=== PATIENT | male | born 1985 | race Caucasian/White ===

== ENCOUNTER → 2021-12-27 10:53 | Outpatient (BNVA) | payer SELFPAY | PROVIDERS: PCP Nurse Practitioner Family; Visit Provider Nurse Practitioner Family | DX: Z13.6 Encounter for screening for cardiovascular disorders (principal); R73.9 Hyperglycemia, unspecified | CPT/HCPCS: 80053; 80061; 81000; 83036; 84443; 85025 ==

== ENCOUNTER → 2021-12-29 14:08 | Outpatient (BNVA) | payer SELFPAY | PROVIDERS: PCP Nurse Practitioner Family; Visit Provider Nurse Practitioner Family | DX: E87.5 Hyperkalemia (principal) | CPT/HCPCS: 80053 ==

== ENCOUNTER → 2023-02-10 12:48 | Outpatient (BNVA) | payer OTHER, SELFPAY | PROVIDERS: PCP Nurse Practitioner Family; Visit Provider Registered Nurse Neonatal Intensive Care | DX: R50.9 Fever, unspecified (principal) | CPT/HCPCS: 87400 ==

== ENCOUNTER → 2023-03-13 08:06 | Outpatient (BNVA) | payer OTHER, SELFPAY | PROVIDERS: PCP Nurse Practitioner Family; Visit Provider Physician Assistant | DX: M75.41 Impingement syndrome of right shoulder; M19.011 Primary osteoarthritis, right shoulder | CPT/HCPCS: 73030 ==

== ENCOUNTER 2024-07-13 20:46 | Emergency (ER) | payer SELFPAY ==
[2024-07-13 20:52] VITALS: BP 152/102; PULSE 85; RESP 18; TEMP 36.8; O2SAT 100; BMI 22.6
--- NOTE | 2024-07-13 22:00 | USR_ITS ---
PROCEDURE INFORMATION: Exam: US Scrotum and US Duplex Artery and Vein, Scrotum, Complete Exam date and time: 07/13/2024 11:50 PM Age: 38 years old Clinical indication: Scrotum pain; Prior surgery; Surgery date: <1 month; Surgery type: Vasectomy May 2024; Additional info: Testicular pain TECHNIQUE: Imaging protocol: Real-time ultrasound of the scrotum. Real-time duplex ultrasound scan of the arterial and venous flow of the scrotum with B-mode, color Doppler flow and spectral waveform analysis. Complete exam. Duplex exam was performed to evaluate for torsion and other vascular conditions. COMPARISON: No relevant prior studies available. FINDINGS: Right: The right testicle measures 36 x 20 x 26 mm, estimated volume 9.6 cc. No visible intratesticular mass. Duplex Doppler evaluation, with color flow and spectral waveform analysis, demonstrates intratesticular arterial and venous blood flow. The right epididymis is normal in size and appearance. There is a small amount of right scrotal fluid. Suspect a small right varicocele. Left: The left testicle measures 35 x 19 x 27 mm, estimated volume 9.4 cc. No visible intratesticular mass. Duplex Doppler evaluation, with color flow and spectral waveform analysis, demonstrates intratesticular arterial and venous blood flow. 4 x 2 x 3 mm cyst or spermatocele in the left epididymis. The left epididymis is otherwise unremarkable in size and appearance. There is a small amount of left scrotal fluid. Suspect a small left varicocele. US/US scrotum [id number] IMPRESSION: 1. No evidence for torsion by Doppler ultrasound. 2. No findings to suggest epididymitis. 3. Small bilateral hydroceles. 4. Other details discussed above.
--- NOTE | 2024-07-13 22:24 | ED_ITS ---
HPI - Male Genitourinary General: Chief complaint: Urogenital-Male Stated complaint: Testicle Pain Time Seen by Provider: 07/13/24 22:00 Source: patient and family () Mode of arrival: ambulatory Limitations: no limitations History of Present Illness: 38-year-old male comes in with right zack ticular pain, going on 5 days getting worse. Now having trouble sitting or standing. Extremely tender on the right side. Right testicle is not high riding. Had a vasectomy on June 05, 2024. MD Complaint: testicle pain and testicle swelling Related Data Previous Rx's Medication Instructions Recorded gabapentin 300 mg capsule 300 mg PO BID #60 caps 11/02/23 prednisone 20 mg tablet 20 mg PO DAILY #18 tabs 11/02/23 doxycycline hyclate 100 mg tablet 100 mg PO BID 10 days #20 tabs 07/14/24 ketorolac 10 mg tablet 10 mg PO Q6H PRN pain 5 days #20 07/14/24 tabs Allergies Allergy/AdvReac Type Severity Reaction Status Date / Time No Known Allergies Allergy Verified 07/13/24 20:57 Review of Systems General: Reports: 10 or more systems reviewed and unremarkable except in HPI and below PFSH ED PFSH: Social History Smoking and tobacco/nicotine status: current every day tobacco/nicotine user Physical Exam Const: COMMON NORMALS: no acute distress, average body habitus, patient oriented x3, healthy appearing, alert and well nourished GENERAL APPEARANCE: well kempt and well developed HENMT: COMMON NORMALS: normocephalic, atraumatic, external ears normal and moist oral mucous membranes HEAD & SCALP: normocephalic and atraumatic EXTERNAL EAR: Yes external ears normal Eye: COMMON NORMALS: Equal, round and reactive pupils present, EOMs intact bilaterally and conjunctivae normal CONJUNCTIVA: Yes conjunctivae normal PUPIL: Yes Equal, round and reactive pupils present Neck/C-Spine: COMMON NORMALS: full ROM, no lymphadenopathy and supple Chest: CHEST: Yes Symmetrical chest wall rise and No Surgical scars present (Chest) Resp: COMMON NORMALS: normal respiratory effort, No retractions, No use of accessory muscles and clear to auscultation bilaterally AUSCULTATION: clear to auscultation bilaterally Cardio: COMMON NORMALS: regular rate, regular rhythm, S1 normal heart sound present, S2 normal heart sound present, No gallops present (Cardio), No clicks present (Cardio), No murmurs present (Cardio) and No rub (Cardio) RATE: regular rate RHYTHM: regular rhythm HEART SOUNDS: S1 normal heart sound present, S2 normal heart sound present and no murmurs PERIPHERAL PULSES: other (Radial pulses 2+ and symmetric) GI: COMMON NORMALS: Soft to palpation, non-tender and no masses INSPECTION: No abdominal distension PALPATION: Yes Soft to palpation, No Guarding due to palpation present (GI) and No Rebound tenderness present : COMMON NORMALS: Yes no CVA tenderness, Yes no scrotal swelling and Yes No hernias present BLADDER/KIDNEY EXAM: Yes no CVA tenderness PENIS: normal penis and circumcised MEATUS: meatus normal TESTES: No testicular lie normal, Yes testicular tenderness, Yes epididymal tenderness (Right) and Yes h igh-riding testicle High-riding testicle laterality: right OTHER: Left scrotal mass along the left upper spermatic cord Back/Pelvis: COMMON NORMALS: no CVA tenderness Extremity: COMMON NORMALS: normal to inspection, full ROM, capillary refill normal and no clubbing, cyanosis or edema Neuro: COMMON NORMALS: patient oriented x3 SENSORIUM/ORIENTATION: Yes alert Psych: APPEARANCE: Yes well kempt Skin: COMMON NORMALS: no rashes or lesions noted, no wounds, turgor normal and no jaundice GENERAL SKIN EXAM: no rashes or lesions noted and turgor normal Course Vital Signs: Vital signs: Vital Signs Temperature 98.2 F 07/13/24 20:52 Pulse Rate 65 07/14/24 01:37 Respiratory Rate 18 07/14/24 01:36 Blood Pressure 130/87 07/14/24 01:37 Pulse Oximetry 98 07/14/24 01:37 Oxygen Delivery Me thod Room Air 07/14/24 01:36 MDM - Male Medical Decision Making Ultrasound shows some hydrocele and variceal good flow to both testicles. My current concern is epididymitis that of the ultrasound was negative. Urine is also negative. Will place patient on doxycycline prophylactically and have him follow-up with urology. Differential Diagnosis Likely urinary tract infection, urethritis, epididymitis and inguinal hernia Medical Records I reviewed the patient's medical records. Lab Data I reviewed the patient's lab results. Radiology Impressions Scrotum Ultrasound 07/13/24 22:00 IMPRESSION: 1. No evidence for torsion by Doppler ultrasound. 2. No findings to suggest epididymitis. 3. Small bilateral hydroceles. 4. Other details discussed above. Laboratory Results Urine Color Yellow (Yellow) 07/13/24 23:16 Urine Appearance Clear (CLEAR) 07/13/24 23:16 Urine pH 6.0 (5-7) 07/13/24 23:16 Ur Specific [place]opia 1.037 (1.005-1.030) H 07/13/24 23:16 Urine Protein Trace (Negative) A 07/13/24 23:16 Urine Glucose (UA) Negative (Normal) 07/13/24 23:16 Urine Ketones Negative (Negative) 07/13/24 23:16 Urine Blood Negative (Negative) 07/13/24 23:16 Urine Nitrate Negative (Negative) 07/13/24 23:16 Urine Bilirubin Negative (Negative) 07/13/24 23:16 Urine Urobilinogen 1.0 mg/dL (Negative) 07/13/24 23:16 Ur Leukocyte Esterase Negative (Negative) 07/13/24 23:16 Urine RBC 0-2 /hpf (0-2) 07/13/24 23:16 Urine WBC 0-5 /hpf (0-5) 07/13/24 23:16 Ur Squamous Epith Cells 0-5 /hpf (0-5) 07/13/24 23:16 Amorphous Sediment Not Reportable 07/13/24 23:16 Urine Bacteria None seen /hpf (NONE) 07/13/24 23:16 Hyaline Casts 0.40 /lpf 07/13/24 23:16 C. trachomatis (PCR) Not detected 07/13/24 23:16 N. gonorrhoeae (PCR) Not detected 07/13/24 23:16 All radiology interpretation(s) finalized by discharge Discharge Plan Discharge Patient Disposition: Home Clinical Impression: Acute pain in scrotum Condition: Stable Prescriptions: New doxycycline hyclate 100 mg tablet 100 mg PO BID 10 Days Qty: 20 0RF ketorolac 10 mg tablet 10 mg PO Q6H PRN (Reason: pain) 5 Days Qty: 20 0RF No Action prednisone 20 mg tablet 20 mg PO DAILY Qty: 18 0RF Rx Instructions: Take 60mg (3 tabs) days 1, 2, 3 Take 40mg (2 tabs) days 4,5,6 take 20mg (1 tab) days 7,8,9 gabapentin 300 mg capsule 300 mg PO BID Qty: 60 0RF Discharge Orders: Discharge ED (Routine); Ordered 07/14/24 Ordered By: Ok Ford Discharge Diet: Usual diet Discharge Activity: Increase activity as tolerated Patient Instructions: Scrotal Pain (ED) Coding Level of Care Code ED Medical Specialist for Gordon Sevilla
[2024-07-13 23:40] LABS: Bilirubin Urine Negative (Negative); Blood Urine Negative (Negative); Glucose Urine UA Negative (Normal); Ketones Urine Negative (Negative); Leukocyte Esterase Urine Negative (Negative); Nitrate Urine Negative (Negative); Protein Urine Trace (Negative); Urine Appearance Clear (CLEAR); Urine Color Yellow (Yellow)
[2024-07-13 23:42] LABS: Add Urine Microscopic? YES; Bacteria Urine None Seen /hpf; RBC Urine 0-2 /hpf (0-2); Squamous Epithelial Cell Urine 0-5 /hpf (0-5); WBC Urine 0-5 /hpf (0-5)
[2024-07-14 00:05] LABS: Specific Gravity, Urine 1.037 (1.005-1.030)
[2024-07-14 01:36] VITALS: BP 130/87; PULSE 65; RESP 18; O2SAT 98
[2024-07-14 01:37] VITALS: BP 130/87; PULSE 65; O2SAT 98
[2024-07-14 01:39] LABS: Chlamydia Trachomatis NOT DETECTED; Neisseria Gonorrhea NOT DETECTED
== END 2024-07-14 01:39 | disposition home or self-care (01) ==
PROVIDERS: Emergency Provider Emergency Medicine
DX: N50.82 Scrotal pain (principal); Z72.0 Tobacco use
CPT/HCPCS: 76870; 81001; 87491; 87591; 99284

== ENCOUNTER 2025-02-22 14:44 | Emergency (ER) | payer SELFPAY ==
--- OUTSIDE RECORDS SUMMARY | 2019-06-06 03:30 | XMS_ITS | Continuity of Care Document ---
Author Organization [facility] Address [id number] [address] Phone Care Team Providers Care Lawn Mower Name Role Phone Unavailable Unavailable Unavailable Allergies, Adverse Reactions, Alerts Substance Reaction Status Criticality No Known allergies Medications Medication Instructions Dosage Effective Dates (start - stop) Status Comments Periogard 0.12 % mouthwash This is an oral rinse. Swish with one capful for 30 seconds then spit out. Twice a day. DO NOT EAT OR DRINK FOR ONE HOUR FOLLOWING. - Active 1 Bottle Substitutions allowed Cartwright 7.5 mg-325 mg tablet take 1 tablet by oral route every 6 hours as needed for breakthrough pain. - No Longer Active Substitutions allowed Periogard 0.12 % mouthwash This is an oral rinse. Swish with one capful for 30 seconds then spit out. Twice a day. DO NOT EAT OR DRINK FOR ONE HOUR FOLLOWING. - No Longer Active 1 Bottle Substitutions allowed Procedures Procedure Date Extraction, Erupted Tooth Or Exposed Hannah t (Elevati Removal Of Impacted Tooth Completely Bony IV Moderate (conscious) Sedation/analges ia, First 15 Min EDR Approval Note Pre-Pay For Services Bitewings Four Films Panoramic Film Intraoral Periapical First Film Intraoral Periapical Each Additional Film Intraoral Periapical Each Additional Film Intraoral Periapical Each Additional Film Comprehensive Oral Evaluatio n New Or Established Limited Oral Evaluation Problem Focused EDR Approval Note EDR Approval Note EDR Approval Note Comprehensive exam & x-ray Advance Directives Directive Yes / No Effective Date File Name No Information Encounters Encounter Description Practice Location Reason(s) For Visit Diagnoses Date Provider Providers Copied on Encounter [facility], [id number] [place], [place], [id number], tel:[phone] [facility] Encounter for dental exam and cleaning w/o abnormal findings No Information [facility], [id number] [place], [place], [id number], tel:[phone] [facility] Encounter for dental exam and cleaning w/o abnormal findings No Information Family History Family Member Type Diagnosis Age At Onset No Information Payers Payer name Insurance type Covered libertarian ID Authoriza tion(s) No Information Social History Type Description Quantity Date Captured Comments Alcohol Use Details No Caffeine Use Details Unknown Tobacco Use Status Smoking Status No Information Sex Male Sexual Orientation Heterosexual Gender Identity Male Vital Signs Date / Time: Height Weight BMI Pulse Rate Blood Pressure Temperature Respiratory Rate Body Surface Area Head Circumference Head Circ. Percentile [place]./[place]. Percentile BMI percentile Pulse Ox Inhaled Ox 8:52 AM 133/78 mm[Hg] Chief Complaint And Reason For Visit No Information Reason For Referral Reason For Referral No Information Plan Of Treatment Date Type Action Status Goal Tobacco cessation counseling completed Goal Tobacco cessation counseling completed History Of Present Illness Encounter Date Complaint History Of Prese nt Illness No Information Functional Status Date Functional Assessmen t No Information Medications Administered Medication Instructions Dosage Effective Dates (start - stop) Status Comments Cartwright 7.5 mg-325 mg tablet take 1 tablet by oral route every 6 hours as needed for breakthrough pain. - No Longer Active Substitutions allowed Periogard 0.12 % mouthwash This is an oral rinse. Swish with one capful for 30 seconds then spit out. Twice a day. DO NOT EAT OR DRINK FOR ONE HOUR FOLLOWING. - No Longer Active 1 Bottle Substitutions allowed Instructions Date Instruction Additional Infor gerardo Lifestyle education Related to D ental Examination Lifestyle education Related to D ental Examination Assessments Type Assessment Date No Information Patient Care Teams Name Effective Dates (start - stop) Status Members No Information
--- NOTE | 2025-02-22 14:47 | ECG_ITS ---
[facility] Date: 2025-02-22 Pat Name: Jared Moser Department: Room: Gender: Male [employer] Tech: : 1985 Requested By: Adam Gu Order Number: [id number] Eusebia MD: Skyler Cole M.D. Measurements Intervals Lyndon Rate: 71 P: 46 IN: 150 QRS: 67 QRSD: 94 T: 51 QT: 376 QTc: 409 Interpretive Statements SINUS RHYTHM No previous ECG available for comparison Electronically Signed On 02-22-2025 21:39:30 CDT by Skyler Cole M.D. [email or web address]
--- OUTSIDE RECORDS SUMMARY | 2025-02-22 14:49 | XMS_ITS | Clinical Summary ---
Author Organization [facility] Address [address] [place] [address] Phone Care Team Providers Care Kosher Dietary Service Supervisor Name Role Phone Susan Muro MD Primary Care Provider Allergies Active Allergy Reactions Criticality Noted Date Comments Promethazine-Codeine Other (See Comments) 07/07 Causes shakes Medications No known medications Active Problems Problem Noted Date Diagnosed Date GERD (gastroesophageal reflux disease) 5 Family History Medical History Relation Name Comments Heart Disease Father High Cholesterol Father Hypertension Father Other Mother Other Sister Relation Name Status Comments Father Alive Mother Alive Sister Alive Social History Tobacco Use Types Packs/Day Years Used Date Smoking Tobacco: Every Day Cigarettes 1.5 10 Smokeless Tobacco: Current Chew Comments:one chew per day x 10 year Alcohol Use Standard Drinks/Week Comments No 0.8 (1 standard drink = 0.6 oz p ure alcohol) year Sex and Gender Information Value Date Recorded Sex Assigned at Not on file 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 Gender Identity Not on file Sexual Orientation Not on file Last Filed Vital Signs Vital Sign Reading Time Taken Comments Blood Pressure 118/82 09/19/2019 9:57 AM CDT Pulse 95 09/19/2019 9:57 AM CDT Temperature 36.9 C (98.5 F) 09/19/2019 9:57 AM CDT Respiratory Rate 18 04/15/2018 8:25 AM CDT Oxygen Saturation 99% 09/19/2019 9:57 AM CDT Inhaled Oxygen Concentration - - Weight 74.8 kg (165 lb) 09/19/2019 9:57 AM CDT Height 175.3 cm (5' 9 ) 09/19/2019 9:57 AM CDT Body Mass Index 24.37 09/19/2019 9:57 AM CDT Plan of Treatment Health Maintenance Due Date Last Done Comments DTAP/TDAP/TD VACCINES (1 - Tdap) 12/04/2003 HEPATITIS B VACCINES (1 of 3 - 19+ 3-dose series) 11/23 HPV VACCINES (1 - 3-dose SCDM series) 12/04/2011 INFLUENZA VACCINE (#1) 2025 Advance Directives For more information, please contact: [phone] * Full Code (Latest Code Status on File) Date Activated Date Inactivated Comments 11/30/2014 8:35 AM 11/30/2014 10:52 AM Care Teams Kosher Dietary Service Supervisor Relationship Specialty Start Date End Date Susan Muro MD [address] [address] PCP - General Family Practice 04/09/18
--- OUTSIDE RECORDS SUMMARY | 2025-02-22 14:49 | XMS_ITS | Clinical Summary ---
Author Organization [facility] Address [address] Jean: Epic Prelude ADT ANJALI HOANG [address] Care Team Providers Care Campaign Manager Name Role Phone Susan Muro MD Primary Care Provider Allergies Active Allergy Reactions Criticality Noted Date Comments Promethazine-Codeine Other (See Comments) 07/07 Causes shakes Medications traMADoL (ULTRAM) 50 mg tabletIndication s:Family planning Take 1 Tablet (50 mg) by mouth every 6 hours as needed for Pain. 12 Tablet 03/25/2024 Active Active Problems Problem Noted Date Diagnosed Date GERD (gastroesophageal reflux disease) 5 Encounters Date Type Department Care Team Description 02/10/2025 External Device Data [facility] ABSTRACTION Provider, Abstract 12/09/2024 External Device Data [facility] ABSTRACTION Provider, Abstract 11/25/2024 External Device Data [facility] ABSTRACTION Provider, Abstract 11/25/2024 External Device Data [facility] ABSTRACTION Provider, Abstract from Last 3 Months Immunizations Immunization Administration Dates Next Due (ADACEL/BOOSTRIX)(10 YR UP) TDAP VACCINE, 0.5ML, IM 01/07/2021 Family History Medical History Relation Name Comments Heart Disease Father High Cholesterol Father Hypertension Father Other Mother Other Sister Relation Name Status Comments Father Alive Mother Alive Sister Alive Social History Tobacco Use Types Packs/Day Years Used Date Smoking Tobacco: Every Day Cigarettes Smokeless Tobacco: Current Chew Tobacco Cessation:Ready to Q uit: Yes; Counseling Given: Yes Comments:Quit smoking: one chew per day x 10 year Alcohol Use Standard Drinks/Week Comments No 0.8 (1 standard drink = 0.6 oz p ure alcohol) Feeling Safe Answer Date Recorded Are you in a relationship wi th someone who hurts you emotionally and/or physically? No 03/03/2023 Sex and Gender Information Value Date Recorded Sex Assigned at Not on file Legal Sex Male 3:45 PM RETREADER Gender Identity Not on file Sexual Orientation Not on file Last Filed Vital Signs Vital Sign Reading Time Taken Comments Blood Pressure 116/82 03/03/2023 12:56 PM CDT Pulse 71 03/03/2023 12:30 PM CDT Temperature 36.9 C (98.4 F) 03/03/2023 12:56 PM CDT Respiratory Rate 12 03/03/2023 12:5 6 PM CDT Oxygen Saturation 99% 03/03/2023 12: 56 PM CDT Inhaled Oxygen Concentration - - Weight 73.4 kg (161 lb 12.8 oz) 023 11:35 AM CDT Height 177.8 cm (5' 10 ) 03/03/2023 11: 35 AM CDT Body Mass Index 23.22 03/03/2023 11:35 AM CDT Plan of Treatment Health Maintenance Due Date Last Done Comments HEPATITIS B VACCINES (1 of 3 - 19+ 3-dose series) 11/23 HPV VACCINES (1 - 3-dose SCDM series) 12/04/2011 INFLUENZA VACCINE (#1) 2025 DTAP/TDAP/TD VACCINES (2 - Td or Tdap) 01/07/2031 Abdominal Aortic Aneurysm (AAA) Screening Completed 02/10/2020 Medical Devices Implanted Type Area Medical Instrument Cable Fabricator Device Identifier Shelf Expiration Date Model / Serial / Lot Wire K Trocar Dbl .[id number] - [id number] Implanted:Qty: 1 on 01/07/2021 by Rose Mary Aldana MD at [facility] Wire Left: Thumb [facility] [id number] 08/10/2025 [id number] / / [id number] Procedures Procedure Name Priority Date/Time Associated Diagnosis Comments US ABDOMEN COMPLETE Routine 02/10/2020 8 :57 AM CDT Abdominal pain, unspecified abdominal location from Last 3 Months or Most Recently Relevant to Health Maintenance Results * US ABDOMEN COMPLETE (02/10/2020 8:57 AM CDT) Anatomical Region Laterality Modality Abdomen Other Impressions 02/10/2020 2:45 PM CDT Please see below. Exam: US ABDOMEN COMPLETE Date/Time of Exam: 02/10/2020 8:57 AM Reason For Exam: See Diagnosis. Diagnosis: Abdominal pain, unspecified abdominal location. Findings: The liver parenchyma is homogeneous. The gallbladder is unremarkable. The pancreas is obscured by bowel gas. The spleen is normal. The abdominal aorta and IVC are unremarkable. The right kidney measures 9.4 cm in length. Left kidney measures 11.0 cm in length. IMPRESSION: Negative examination with mild limitations as noted. Narrative Procedure Note Ronnie Rizo MD - 11/11/2020 IMPRESSION Please see below. Exam: US ABDOMEN COMPLETE Date/Time of Exam: 02/10/2020 8:57 AM Reason For Exam: See Diagnosis. Diagnosis: Abdominal pain, unspecified abdominal location. Findings: The liver parenchyma is homogeneous. The gallbladder is unremarkable. The pancreas is obscured by bowel gas. The spleen is normal. The abdominal aorta and IVC are unremarkable. The right kidney measures 9.4 cm in length. Left kidney measures 11.0 cm in length. IMPRESSION: Negative examination with mild limitations as noted. Harrison Miles MD ORDERABLES Final Resul t from Last 3 Months or Most Recently Relevant to Health Maintenance Insurance [employer] (INTERNAL) [facility] [employer] GENERIC PAYOR Advance Directives For more information, please contact: [phone] * Full Code (Latest Code Status on File) Date Activated Date Inactivated Comments 01/07/2021 2:24 PM 01/07/2021 7:19 PM Care Teams Campaign Manager Relationship Specialty Start Date End Date Susan Muro MD [address] [phone] PCP - General Family Practice 04/09/18
--- OUTSIDE RECORDS SUMMARY | 2025-02-22 14:49 | XMS_ITS | Encounter Summary ---
Author Organization [facility] Address [address] [place] [address] Care Team Providers Care Water Quality Specialist Name Role Phone Susan Muro MD Primary Care Provider Encounter Details Date Type Department Care Team (Latest Contact Info) Description 05/13/2003 Outpatient Historical [facility] General Surgery [address] [address] [address] [place] [address] [place] [address] [facility] [address] [place] [address] Rectal/anal hemorrhage (Primary Dx) Social History Tobacco Use Types Packs/Day Years Used Date Smoking Tobacco: Never Assessed Sex and Gender Information Value Date Recorded Sex Assigned at Not on file Legal Sex Male 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
--- OUTSIDE RECORDS SUMMARY | 2025-02-22 14:49 | XMS_ITS | Encounter Summary ---
Author Organization [facility] Address [address] [place] [address] Care Team Providers Care Supervisor Scrap Preparation Name Role Phone Susan Muro MD Primary Care Provider [phone] Reason for Referral * Radiology Services (Routine) - Closed Specialty Diagnoses / Procedures Referred By Mary Grace gong Referred To Contact Radiology Diagnoses Abdominal pain, unspecified abdominal location Procedures US ABDOMEN COMPLETE Harrison Miles MD Phone: tel: fax: [facility] [address] [place] [address] Phone: tel: fax: Referral ID Status Reason Start Date Expiration Date Visits Re quested Visits Authorized [id number] Closed 01/29/2020 02/28/2021 1 1 Encounter Details Date Type Department Care Team (Latest Contact Info) Description 01/29/2020 Ancillary Orders [facility] Scheduling [address] [facility] [address] [place] [address] Harrison Miles MD [address] [place] [address] Abdominal pain, unspecified abdominal location Social History Tobacco Use Types Packs/Day Years Used Date Smoking Tobacco: Every Day Cigarettes 1.5 10 Smokeless Tobacco: Current Chew Comments:one chew per day x 10 year Alcohol Use Standard Drinks/Week Comments No 0.8 (1 standard drink = 0.6 oz p ure alcohol) year Sex and Gender Information Value Date Recorded Sex Assigned at Not on file Legal Sex Male 4:37 AM OFFSET DUPLICATING MACHINE OPERATOR Gender Identity Not on file Sexual Orientation Not on file documented as of this encounter Plan of Treatment Not on file documented as of this encounter Results * US ABDOMEN COMPLETE (02/10/2020 8:57 AM CDT) Anatomical Region Laterality Modality Abdomen Ultrasound 02/10/2020 8:57 AM CDT Impressions 02/10/2020 2:45 PM CDT IMPRESSION: Please see below. Exam: US ABDOMEN COMPLETE [...] Narrative Procedure Note Ronnie Rizo MD - 02/10/2020 IMPRESSION: Please see below. Exam: US ABDOMEN COMPLETE [...] mild limitations as noted. Harrison Miles MD US ORDERABLES Final Resul t documented in this encounter Visit Diagnoses Diagnosis Abdominal pain, unspecified abdominal location Abdominal pain, unspecified abdominal location documented in this encounter Care Teams Supervisor Scrap Preparation Relationship Specialty Start Date End Date Susan Muro MD [address] [facility] [address] [place] [address] PCP - General Family Practice 04/09/18 documented as of this encounter
--- OUTSIDE RECORDS SUMMARY | 2025-02-22 14:49 | XMS_ITS | Encounter Summary ---
Author Organization [facility] Address [address] [place] [address] Care Team Providers Care Canine Service Instructor Trainer Name Role Phone Susan Muro MD Primary Care Provider Encounter Details Date Type Department Care Team (Late st Contact Info) Description 01/28/2019 Lab Requisition [facility] Laboratory Services [place] [address] [place] [id number] Nadine Hernandez, DIESEL ENGINE TESTER [address] [place] [phone] Social History Tobacco Use Types Packs/Day Years Used Date Smoking Tobacco: Every Day Cigarettes 1.5 10 Smokeless Tobacco: Current Chew Comments:one chew per day x 10 year Alcohol Use Standard Drinks/Week Comments No 0.8 (1 standard drink = 0.6 oz p ure alcohol) year Sex and Gender Information Value Date Recorded Sex Assigned at Not on file Legal 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 Gender Identity Not on file Sexual Orientation Not on file documented as of this encounter Plan of Treatment Not on file documented as of this encounter Procedures Procedure Name Priority Date/Time Associated Diagnosis Comments CBC WITH DIFFERENTIAL Routine 01/27/2019 5:00 PM CDT VITAMIN B12 LEVEL Routine 01/27/2019 5:0 0 PM CDT COMPREHENSIVE METABOLIC PANEL Routine 01/27/2019 5:00 PM CDT documented in this encounter Results * VITAMIN B12 LEVEL (01/27/2019 5:00 PM CDT) VITAMIN B12 425 211 - 946 pg/mL 01/28/2019 11:56 PM CDT [facility] Blood Collection / Unknown 01/27/2019 5:00 PM CDT 01/28/2019 8:51 AM CDT us Nadine Hernandez DIESEL ENGINE TESTER CHEMISTRY ORDERABLES Fi nal Result [facility] CLIA# [id number] [facility] [place] [address] * (ABNORMAL) CBC WITH DIFFERENTIAL (01/27/2019 5:00 PM CDT) WBC 8.5 4.2 - 9.1 K/uL 01/28/2019 11:32 AM [facility] RBC 4.95 4.63 - 6.08 M/uL 01/28/2019 11:32 AM [facility] HEMOGLOBIN 15.2 13.7 - 17.5 g/dL 01/28/2019 11:32 AM [facility] HEMATOCRIT 46.2 40.1 - 51.0 % 01/28/2019 11:32 AM [facility] MCV 93.3(H) 79.0 - 92.2 fL 01/28/2019 11:32 AM [facility] MCH 30.7 25.7 - 32.2 pg 01/28/2019 11:32 AM [facility] MCHC 32.9 32.3 - 36.5 g/dL 01/28/2019 11:32 AM [facility] RDW 13.2 11.0 - 14.5 % 01/28/2019 11:32 AM [facility] RDW-STDEV 43.7 36.9 - 56.9 fL 01/28/2019 11:32 AM [facility] PLATELETS 203 130 - 400 K/uL 01/28/2019 11:32 AM [facility] MPV 11.9 10.0 - 14.8 fL 01/28/2019 11:32 AM [facility] NEUTROPHILS 58 34 - 68 % 01/28/2019 11:32 AM [facility] LYMPHOCYTES 31 22 - 53 % 01/28/2019 11:32 AM [facility] MONOCYTES 9 5 - 12 % 01/28/2019 11:32 AM [facility] EOSINOPHILS 1 1 - 7 % 01/28/2019 11:32 AM [facility] BASOPHILS 0 0 - 1 % 01/28/2019 11:32 AM [facility] IMMATURE GRANULOCYTES 0 % 01/28/2019 11:32 AM [facility] NEUTROPHIL ABSOLUTE 4.94 1.78 - 5.38 K/uL 01/28/2019 11:32 AM [facility] LYMPHOCYTE ABSOLUTE 2.62 1.20 - 3.40 K/uL 01/28/2019 11:32 AM [facility] MONOCYTE ABSOLUTE 0.80 0.30 - 0.82 K/uL 01/28/2019 11:32 AM [facility] EOSINOPHIL ABSOLUTE 0.11 0.04 - 0.54 K/uL 01/28/2019 11:32 AM [facility] BASOPHILS ABSOLUTE 0.03 0.01 - 0.08 K/uL 01/28/2019 11:32 AM [facility] IMMATURE GRANULOCYTES ABSOLUTE 0.01 K/uL 01/28/2019 11:32 AM [facility] Blood Collection / Unknown 01/27/2019 5:00 PM CDT 01/28/2019 8:51 AM CDT us Nadine Hernandez DIESEL ENGINE TESTER HEMATOLOGY ORDERABLES F inal Result [facility] CLIA # [id number] [address] [place] [address] * (ABNORMAL) COMPREHENSIVE METABOLIC PANEL (01/27/2019 5:00 PM CDT) SODIUM 140 136 - 145 mmol/L 01/28/2019 12:15 PM T [facility] POTASSIUM 4.5 3.5 - 5.1 mmol/L 01/28/2019 12:15 PM [facility] CHLORIDE 103 98 - 107 mmol/L 01/28/2019 12:15 PM [facility] CO2 24 22 - 29 mmol/L 01/28/2019 12:15 PM [facility] CALCIUM 9.3 8.6 - 10.0 mg/dL 01/28/2019 12:15 PM [facility] BUN 10 6 - 20 mg/dL 01/28/2019 12:15 PM [facility] CREATININE 1.00 0.67 - 1.17 mg/dL 01/28/2019 12:15 PM [facility] GLUCOSE 104(H) 74 - 99 mg/dL 01/28/2019 12:15 PM [facility] TOTAL PROTEIN 6.7 6.6 - 8.7 g/dL 01/28/2019 12:15 PM [facility] ALBUMIN 4.4 3.5 - 5.2 g/dL 01/28/2019 12:15 PM [facility] BILIRUBIN TOTAL <0.2 0.0 - 1.2 mg/dL 01/28/2019 12:15 PM [facility] ALKALINE PHOSPHATASE 106 40 - 129 U/L 01/28/2019 12:15 PM [facility] AST 20 10 - 50 U/L 01/28/2019 12:15 PM [facility] ALT 18 10 - 50 U/L 01/28/2019 12:15 PM [facility] GFR >60 >=60 mL/min/1.7 3 sq meter 01/28/2019 12:15 PM [facility] Comment: eGFR has not been validated for use in the elderly (> 70 years of age), women, patients with serious co-morbid conditions, or persons with extremes of body size or muscle mass and should also be interpreted with caution in patients with acute kidney failure, dialysis dependent patients, patients reporting exceptional dietary intake (e.g. vegetarian diet, high protein diets, creatine supplementation), and patients with severe liver disease. Based on National Kidney Disease Education Program If patient is , please refer to the GFR result. GFR, >60 >=60 mL/min/1.7 3 sq meter 01/28/2019 12:15 PM CDT [facility] ANION GAP 13 12 - 20 mmol/L 01/28/2019 12:15 PM CDT [facility] Blood Collection / Unknown 01/27/2019 5:00 PM CDT 01/28/2019 8:51 AM CDT Nadine Hernandez DIESEL ENGINE TESTER CHEMISTRY ORDERABLES Fi nal Result [facility] CLIA # [id number] [address] [address] documented in this encounter Visit Diagnoses Not on filedocumented in this encounter Care Teams Canine Service Instructor Trainer Relationship Specialty Start Date End Date Susan Muro MD [address] [phone] PCP - General Family Practice 04/09/18 documented as of this encounter
--- NOTE | 2025-02-22 14:56 | XRR_ITS ---
PROCEDURE INFORMATION: Exam: XR Chest Exam date and time: 02/22/2025 2:54 PM Age: 39 years old Clinical indication: Pain; Chest pressure; Additional info: Chest pain; SOB; Cough; Fever. TECHNIQUE: Imaging protocol: Radiologic exam of the chest. Views: 1 view. COMPARISON: CR XR shoulder RT min 2V* [id number] 03/13/2023 8:26 AM FINDINGS: Lungs: Unremarkable. No consolidation. Pleural spaces: Unremarkable. No pleural effusion. No pneumothorax. Heart/Mediastinum: Unremarkable. No cardiomegaly. Bones/joints: No acute osseous abnormality. XR/XR chest 1V portable [id number] IMPRESSION: No acute radiographic cardiopulmonary abnormality.
[2025-02-22 14:57] VITALS: BP 117/75; PULSE 62; RESP 18; TEMP 36.6; O2SAT 100; BMI 22.9
--- NOTE | 2025-02-22 15:11 | W.ED.GENADLT ---
HPI - General Adult General: Chief complaint: Chest Pain Stated complaint: Chest Pain / SOB Time Seen by Provider: 02/22/25 14:56 History of Present Illness: 39-year-old male presents emergency room with a complaint of chest pain and shortness of breath. Clear mucus cough production. No hemoptysis no fever. Patient notes cough worse when he lays back. Some mild chest discomfort and fullness. No radiation of the neck arms or back. Patient is a smoker. Associated symptoms: Deny chest pain, dyspnea or rash Related Data Previous Rx's ?Medication ?Instructions ?Recorded gabapentin 300 mg capsule 300 mg PO BID #60 caps 11/02/23 prednisone 20 mg tablet 20 mg PO DAILY #18 tabs 11/02/23 Allergies Allergy/AdvReac Type Severity Reaction Status Date / Time No Known Allergies Allergy Verified 02/22/25 14:56 Review of Systems Const: Denies: fever(s) or chills Card: Denies: chest pain Resp: Denies: dyspnea GI: Denies: abdominal pain : Denies: dysuria, urinary frequency or urinary urgency Musc: Denies: neck pain or back pain Skin/Breast: Denies: rash PFSH ED PFSH: Social History Smoking and tobacco/nicotine status: current every day tobacco/nicotine user Physical Exam Const: GENERAL APPEARANCE: cooperative ORIENTATION/CONSCIOUSNESS: Yes awake, Yes oriented to person, Yes oriented to place and Yes oriented to time HENMT: COMMON NORMALS: normocephalic, atraumatic and hearing grossly normal bilaterally HEAD & SCALP: normocephalic and atraumatic Resp: COMMON NORMALS: normal respiratory effort, No retractions, No use of accessory muscles and clear to auscultation bilaterally AUSCULTATION: clear to auscultation bilaterally Cardio: COMMON NORMALS: regular rate, regular rhythm and No murmurs present (Cardio) RATE: regular rate RHYTHM: regular rhythm GI: COMMON NORMALS: Soft to palpation and No hepatosplenomegaly present AUSCULTATION: Yes normoactive bowel sounds PALPATION: Yes Soft to palpation, No Tenderness to palpation present (GI), No Guarding due to palpation present (GI) and Yes No hepatosplenomegaly present Extremity: COMMON NORMALS: normal to inspection, capillary refill normal, no clubbing, cyanosis or edema, no calf tenderness and no pedal edema Neuro: SENSORIUM/ORIENTATION: Yes oriented to person, Yes oriented to place and Yes oriented to time Skin: COMMON NORMALS: no rashes or lesions noted GENERAL SKIN EXAM: no rashes or lesions noted Course Vital Signs: Vital signs: Vital Signs Temperature 97.9 F 02/22/25 14:57 Pulse Rate 78 02/22/25 17:57 Respiratory Rate 18 02/22/25 17:57 Blood Pressure 114/76 02/22/25 17:57 Pulse Oximetry 99 02/22/25 17:57 Oxygen Delivery Me thod Room Air 02/22/25 17:29 MDM - General Adult Medical Decision Making ABG shows hyperventilation EKG does not show any acute changes cardiac enzymes normal chest x-ray normal white count mildly elevated believe that is from his steroid use. Will discharge patient home continue his albuterol as needed follow-up with his primary care doctor. Medical Records I reviewed the patient's medical records. Lab Data I reviewed the patient's lab results. 02/22/25 15:10 02/22/25 15:10 Radiology Impressions Chest X-Ray 02/22/25 14:56 IMPRESSION: No acute radiographic cardiopulmonary abnormality. Laboratory Results WBC 16.18 10^3/uL (3.29-11.43) H 02/22/25 15:10 RBC 5.28 10^6/uL (3.85-5.65) 02/22/25 15:10 Hgb 15.90 g/dL (11.27-16.99) 02/22/25 15:10 Hct 46.5 % (37-53) 02/22/25 15:10 MCV 88.1 fl (82-101) 02/22/25 15:10 MCH 30.1 pg (27-33) 02/22/25 15:10 MCHC 34.2 g/dL (30-55) 02/22/25 15:10 RDW 12.8 % (12.1-15.1) 02/22/25 15:10 Plt Count 278 10^3/cmm (157-399) 02/22/25 15:10 MPV 10.6 fL (7.4-10.4) H 02/22/25 15:10 Neut % (Auto) 74.0 % 02/22/25 15:10 Lymph % (Auto) 18.9 % 02/22/25 15:10 Parker % (Auto) 5.4 % 02/22/25 15:10 Eos % (Auto) 0.4 % 02/22/25 15:10 Baso % (Auto) 0.4 % 02/22/25 15:10 Neut # (Auto) 11.98 10^3/uL (1.8-7.7) H 02/22/25 15:10 Lymph # (Auto) 3.1 10^3/uL (0.8-4.8) 02/22/25 15:10 Parker # (Auto) 0.9 10^3/uL (0.2-0.9) 02/22/25 15:10 Eos # (Auto) 0.1 10^3/uL (0.0-0.8) 02/22/25 15:10 Baso # (Auto) 0.1 10^3/uL (0.0-0.1) 02/22/25 15:10 Nucleated RBC % (auto) 0 % 02/22/25 15:10 Nucleated RBCs # 0.0 /100WBC 02/22/25 15:10 Specimen Type Arterial 02/22/25 15:42 Sample Site Radial, right 02/22/25 15:42 ABG pH 7.50 (7.35-7.45) H 02/22/25 15:42 ABG pCO2 32.0 mmHg (35-45) L 02/22/25 15:42 ABG pO2 75.5 mmHg (80.0-100.0) L 02/22/25 15:42 ABG PO2/FiO2 Ratio 359 02/22/25 15:42 ABG HCO3 24.8 mmol/L (22-26) 02/22/25 15:42 ABG O2 Saturation 96.6 02/22/25 15:42 ABG Base Excess 2.3 mmol/L (-2.0-2.0) H 02/22/25 15:42 Benjamin Test Pos 02/22/25 15:42 A-a O2 Gradient 4.4 mmHg (5-10) L 02/22/25 15:42 Hematocrit 47.6 % (42-52) 02/22/25 15:42 Hgb O2 Saturation 92.7 % (95-100) L 02/22/25 15:42 Carboxyhemoglobin 3.1 %THgb (0.4-20.1) 02/22/25 15:42 Methemoglobin 0.9 % (0.4-1.5) 02/22/25 15:42 Total Hemoglobin 15.5 g/dL (14-18) 02/22/25 15:42 Sodium 139.0 mmol/L (131-143) 02/22/25 15:42 Potassium 3.7 mmol/L (3.5-5.0) 02/22/25 15:42 Glucose 95.0 mg/dL (70-115) 02/22/25 15:42 Ionized Calcium 1.2 mmol/L (1.1-1.4) 02/22/25 15:42 O2 Delivery Device Room air 02/22/25 15:42 FiO2 21.0 % 02/22/25 15:42 Maintenance Carpenter ID Amh 02/22/25 15:42 Sodium 142 mmol/L (136-145) 02/22/25 15:10 Potassium 4.2 mmol/L (3.5-5.1) 02/22/25 15:10 Chloride 102 mmol/L (98-107) 02/22/25 15:10 Carbon Dioxide 21 mmol/L (22-29) L 02/22/25 15:10 Anion Gap 23.2 (5-19) H 02/22/25 15:10 BUN 9 mg/dL (6-20) 02/22/25 15:10 Creatinine 0.9 mg/dL (0.7-1.2) 02/22/25 15:10 GFR Calculation 93.5 mL/min (90-130) 02/22/25 15:10 Glucose 88 mg/dL (65-115) 02/22/25 15:10 Calculated Osmolality 292 mOsm/kg (285-295) 02/22/25 15:10 Calcium 10.3 mg/dL (8.5-10.5) 02/22/25 15:10 Total Bilirubin 0.4 mg/dL (0.15-1.2) 02/22/25 15:10 AST 17 U/L (0-40) 02/22/25 15:10 ALT 16 U/L (0-41) 02/22/25 15:10 Alkaline Phosphatase 122 U/L (40-130) 02/22/25 15:10 Troponin T Baseline 9 ng/L (0-15) 02/22/25 15:10 Troponin T 120 Minute 8.43 ng/L (0-15) 02/22/25 16:56 Delta Troponin T -0.57 ABS# (0-10) L 02/22/25 16:56 Total Protein 7.0 g/dL (6.6-8.7) 02/22/25 15:10 Albumin 4.7 g/dL (3.5-5.2) 02/22/25 15:10 Globulin 2.3 g/dL (1.3-4.6) 02/22/25 15:10 All radiology interpretation(s) finalized by discharge EKG Data EKG 1: Interpretation: EKG 02/22/2025 1447. Sinus rhythm rate of 71 MS interval [address] QTc [address] changes noted. No previous EKGs for comparison Computer generated interpretation: Chest X-Ray 02/22/25 14:56 IMPRESSION: No acute radiographic cardiopulmonary abnormality. EKG 2: Interpretation: EKG 02/22/2025 1717 sinus bradycardia with a rate of 48 MS interval 160 QTc [address] changes noted no significant change from EKG done earlier same day Computer generated interpretation: Chest X-Ray 02/22/25 14:56 IMPRESSION: No acute radiographic cardiopulmonary abnormality. Discharge Plan Discharge Patient Disposition: Home Clinical Impression: Atypical chest pain, Hyperventilation Condition: Stable Prescriptions: No Action prednisone 20 mg tablet 20 mg PO DAILY Qty: 18 0RF Rx Instructions: Take 60mg (3 tabs) days 1, 2, 3 Take 40mg (2 tabs) days 4,5,6 take 20mg (1 tab) days 7,8,9 gabapentin 300 mg capsule 300 mg PO BID Qty: 60 0RF Discharge Orders: Discharge ED (Routine); Ordered 02/22/25 Ordered By: Adam Miranda Discharge Diet: Usual diet Discharge Activity: Resume usual activity Patient Instructions: Opioid Safety, Pain Management, Patient Portal & Rosemary Instructions Activity Restrictions/Additional Instructions: Thank you for choosing [facility] for your healthcare needs today. It is very important that you follow up as instructed or that you return to the Emergency Department should you have concerns or if your condition changes or worsens in any way. Emergency department visits are focused on emergent conditions, in some cases you may require further evaluation on an outpatient basis. You were seen in the emergency room with complaints of shortness of breath and chest discomfort. When you first arrived you are hyperventilating. I think this is the cause of the majority of your symptoms is also contributed to by the rhinovirus. Your white count is slightly elevated this is likely from the steroids you are currently taking. Your vital signs remained stable and your cardiac enzymes and EKGs were normal. Follow-up with your primary care doctor as needed. (Please note that included in your discharge packet is information concerning opioid safety and pain management. This information is given to all patients were discharged from the ER regardless of their discharge diagnosis or the medicines they usually take or are prescribed.) Print Language: Chadian Coding Level of Care Code ED Vamp Cut Out Worker for Gordon Sevilla
[2025-02-22 15:20] VITALS: BP 132/84; PULSE 74; RESP 22; O2SAT 99
[2025-02-22 15:24] LABS: Hematocrit 46.5 % (37-53); Hemoglobin 15.90 g/dL (11.27-16.99); Mean Corpuscular HGB Conc 34.2 g/dL (30-55); Mean Corpuscular Hemoglobin 30.1 pg (27-33); Mean Corpuscular Volume 88.1 fl (82-101); Nucleated Red Blood Cells % 0 %; Platelet Count 278 10^3/cmm (157-399); Red Blood Count 5.28 10^6/uL (3.85-5.65); White Blood Count 16.18 10^3/uL (3.29-11.43)
[2025-02-22 15:47] LABS: Alanine Aminotransferase 16 U/L (0-41); Albumin Level 4.7 g/dL (3.5-5.2); Alkaline Phosphatase 122 U/L (40-130); Anion Gap 23.2 (5-19); Aspartate Amino Transferase 17 U/L (0-40); Blood Urea Nitrogen 9 mg/dL (6-20); Calcium 10.3 mg/dL (8.5-10.5); Carbon Dioxide 21 mmol/L (22-29); Chloride 102 mmol/L (98-107); Creatinine Clr Calc Pharmacy 112.3920; Globulin 2.3 g/dL (1.3-4.6); Glucose 88 mg/dL (65-115); Osmolality Calculated 292 mOsm/kg (285-295); Potassium 4.2 mmol/L (3.5-5.1); Sodium 142 mmol/L (136-145); Total Protein 7.0 g/dL (6.6-8.7)
[2025-02-22 15:49] LABS: Troponin(5th) Baseline 9 ng/L (0-15)
[2025-02-22 15:53] LABS: ABG PCO2 32.0 mmHg (35-45); ABG PH Result 7.50 (7.35-7.45); Alveolar-Arterial Oxygen Gradi 4.4 mmHg (5-10); Arterial Blood Gas Hematocrit 47.6 % (42-52); Blood Gas Allen Test Pos; Blood Gas Operator Identificat AMH; Blood Gas Sample Site Radial, right; Blood Gas Sample Type Arterial; Carboxyhemoglobin 3.1 %THgb (0.4-20.1); Glucose Level-ABG 95.0 mg/dL (70-115); HCO3 ABG 24.8 mmol/L (22-26); Ionized Calcium Level - ABG 1.2 mmol/L (1.1-1.4); Methemoglobin 0.9 % (0.4-1.5); Oxygen Saturation ABG 96.6; PO2 ABG 75.5 mmHg (80.0-100.0); PO2 FiO2 Ratio Arterial Blood 359; Potassium Level - ABG 3.7 mmol/L (3.5-5.0); Sodium Level - ABG 139.0 mmol/L (131-143)
[2025-02-22 16:36] VITALS: BP 98/61; PULSE 80; RESP 16; O2SAT 97
--- NOTE | 2025-02-22 17:17 | ECG_ITS ---
[facility] Date: 2025-02-22 Pat Name: Jared Moser Department: Room: Gender: Male Associate Chemist: : 1985 Requested By: Adam Gu Order Number: [id number] Eusebia MD: Skyler Cole M.D. Measurements Intervals Crum Rate: 48 P: 49 [place]: 160 QRS: 67 QRSD: 95 T: 57 QT: 420 QTc: 376 Interpretive Statements SINUS BRADYCARDIA EARLY REPOLARIZATION Compared to ECG 02/22/2025 14:47:34 NO SIGNIFICANT CHANGE Electronically Signed On 02-22-2025 23:22:11 CDT by Skyler Cole M.D. [email or web address]
[2025-02-22 17:29] VITALS: BP 118/78; PULSE 53; RESP 18; O2SAT 99
[2025-02-22 17:37] LABS: Troponin 5 2HR 8.43 ng/L (0-15)
[2025-02-22 17:38] LABS: Troponin 5 2HR Delta -0.57 ABS# (0-10)
[2025-02-22 17:57] VITALS: BP 114/76; PULSE 78; RESP 18; O2SAT 99
== END 2025-02-22 17:58 | disposition home or self-care (01) ==
PROVIDERS: Emergency Provider Family Medicine
DX: R07.89 Other chest pain (principal); R06.4 Hyperventilation; Z72.0 Tobacco use
CPT/HCPCS: 36415; 36600; 71045; 80051; 80053; 82330; 82805; 84484; 85025; 93005; 96360; 99285; J7030; J9999